=== PATIENT | female | born 1960 | race Caucasian/White ===

== ENCOUNTER → 2018-11-27 | Outpatient (CLI) | payer OTHER | END | disposition home or self-care (01) | LOC: PREOP 06:14 | PROVIDERS: ATTEND Surgery | DX: Z01.818 Encounter for other preprocedural examination (principal) ==

== ENCOUNTER 2018-12-04 07:28 | Day surgery (SDC) | payer OTHER ==
[~2018-12-04 07:28] MED LIST: BUSP10TA95 PO; LACTATED RINGERS 1,000 ML IV ONE; LEVO175T5 PO
[2018-12-04] MEDS ORDERED: PROPOFOL INJECTION 0 ML IV ONE (07:36)
[2018-12-04] MEDS ORDERED: MIDAZOLAM 2 MG/2 ML (VERSED) VIAL ONE (07:37)
[2018-12-04] MEDS ORDERED: LACTATED RINGERS 1,000 ML IV STA (07:55)
[2018-12-04 07:59] VITALS: BP 138/78
--- NOTE | 2018-12-04 08:16 | Progress Note-Pre Operative ---
Pre-Operative Progress Note H&P Reviewed The H&P was reviewed, patient examined and no changes noted. Time Seen by Provider: 08:09 Date H&P Reviewed: Dec 04, 2018 Time H&P Reviewed: 08:10 Pre-Operative Diagnosis: screening DANELLE CELESTIN DO Dec 04, 2018 08:16
[2018-12-04] MEDS ORDERED: PROPOFOL INJECTION 50 ML IV ONE (08:59)
[2018-12-04 09:10] VITALS: BP 122/69
[2018-12-04 09:15] VITALS: BP 132/68
[2018-12-04 09:20] VITALS: BP 132/68
[2018-12-04 09:40] VITALS: BP 144/78
[2018-12-04 09:47] VITALS: BP 144/78
--- NOTE | 2018-12-04 09:56 | Progress Note-Post Operative ---
Post-Operative Progess Note Surgeon (s)/Slipper Maker (s) Surgeon DANELLE CELESTIN DO Slipper Maker: none Pre-Operative Diagnosis screening Post-Operative Diagnosis Transverse colon polyp hemorrhoids Procedure & Operative Findings Date of Procedure 12/04/18 Procedure Performed/Findings colon with hot bx Anesthesia Type IV sedation by EVENT DECORATOR AND DESIGNER Estimated Blood Loss Estimated blood loss (mL): scant Specimens/Packing Specimens Removed transverse colon bx DANELLE CELESTIN DO Dec 04, 2018 09:56
--- NOTE | 2018-12-04 09:57 | Endoscopy Discharge Instruct ---
Endo Procedure/Findings Findings 1.: Polyp 2.: Internal Hemorrhoids Discharge Instructions - Activity: You might feel a little sleepy until tomorrow. This is due to the medicine you received to relax you. Until tomorrow, you should: NOT drive a car, operate machinery or power tools. NOT drink any alcoholic beverages. NOT make any important decisions or sign importortant papers. Do not return to work until tomorrow, unless otherwise instructed. Resume previous activities tomorrow. Diet: Start by taking liquids. If you tolerate liquids, advance to solid food. make an appointmen for one week 1.: Colonscopy in 5 years Notify Physician - If you experience excessive bleeding, unusual abdominal pain, fever, or chest pain, contact your doctor immediately. DANELLE CELESTIN DO Dec 04, 2018 09:57
--- NOTE | 2018-12-04 10:10 | Anesthesia-General Post-Op ---
MAC Patient Condition Mental Status/LOC: Same as Preop Cardiovascular: Satisfactory Nausea/Vomiting: Absent Respiratory: Satisfactory Pain: Controlled Complications: Absent Post Op Complications Complications None Follow Up Care/Instructions Patient Instructions None needed. Anesthesiology Discharge Order Discharge Order Patient is doing well, no complaints, stable vital signs, no apparent adverse anesthesia problems. No complications reported per nursing. OMEGA ORTIZ CRNA Dec 04, 2018 10:10
--- NOTE | 2018-12-05 03:45 | OPERATIVE REPORT ---
DATE OF SERVICE: 12/04/2018 PREOPERATIVE DIAGNOSIS: Screening colonoscopy. POSTOPERATIVE DIAGNOSES: 1. Colon polyps. 2. Internal hemorrhoids. PROCEDURE: Colonoscopy with hot biopsy. SURGEON: Frank Cisneros DO PHOTOGRAPHIC EQUIPMENT ASSEMBLER: None. ANESTHESIA: IV sedation by DYED RAW STOCK BLOWER FEEDER. SPECIMEN: One biopsy of a polyp from the transverse colon. BLOOD LOSS: Scant. FLUIDS: Per anesthesia. POSTOPERATIVE CONDITION: Stable. INDICATION FOR PROCEDURE: The patient is a 58-year-old female who has never had a colonoscopy, needs one for screening. FINDINGS: The patient had a polyp in the transverse colon, she had some internal hemorrhoids, but no other obvious pathology. PROCEDURE NOTE: After informed consent was obtained, the patient was brought to the endoscopy suite and placed in the left lateral decubitus position. She was administered IV sedation by the DYED RAW STOCK BLOWER FEEDER who then monitored her vitals the entire time, heart rate, blood pressure and pulse ox and the scope was inserted, pushed all the way to 140 cm to get to the cecum, took a picture of appendiceal orifice, noted the ileocecal valve and then slowly withdrew the scope insufflating the circumferential koch, looking at the cecum up the ascending colon to the hepatic flexure, then down the transverse colon and in the transverse colon saw small polyp, did a hot biopsy of this and then continued down to the splenic flexure, into the descending colon down in the sigmoid and finally into the rectum, retroflexed the rectal vault, saw some grade II internal hemorrhoids and then removed the scope. The patient tolerated the procedure, recovered in endoscopy suite. Job ID: [id number] DocumentID: [id number] Dictated Date: 12/04/2018 17:44:45 [employer] Reading Teacher Date: 12/05/2018 01:43:04 Dictated By: FRANK CISNEROS DO
== END 2018-12-04 10:00 | disposition home or self-care (01) ==
LOC: ENDO 07:28
PROVIDERS: ATTEND Surgery
DX: Z12.11 Encounter for screening for malignant neoplasm of colon (principal); D12.3 Benign neoplasm of transverse colon; K64.8 Other hemorrhoids; J40 Bronchitis, not specified as acute or chronic; Z88.2 Allergy status to sulfonamides; Z88.1 Allergy status to other antibiotic agents; Z82.49 Family history of ischemic heart disease and other diseases of the circulatory system; Z83.3 Family history of diabetes mellitus

== ENCOUNTER → 2021-08-29 | Outpatient (CLI) | payer OTHER ==
[~2021-08-29] MED LIST changes: -LACTATED RINGERS 1,000 ML IV ONE
--- NOTE | 2021-08-29 14:26 | Diagnostic Imaging Report ---
EXAMINATION: Chest 2 view HISTORY: Shortness of breath. Pneumonia 3 weeks ago. COMPARISON: None available. FINDINGS: The lung volumes are normal. No focal consolidation is seen. No large pleural effusion or pneumothorax is seen. The cardiomediastinal silhouette is normal in size and contour. No acute osseous abnormality is seen. Subtle S-shaped scoliosis of the thoracolumbar spine is noted. IMPRESSION: 1. No acute pleuroparenchymal process. Dictated by: Dictated on workstation # [id number]
== END ==
LOC: RAD FS 13:11
PROVIDERS: ATTEND Nurse Practitioner Family
DX: J16.8 Pneumonia due to other specified infectious organisms (principal)
CPT/HCPCS: 71046